=== PATIENT | male | born 1985 | race African-American/Black ===

== ENCOUNTER 2017-03-28 01:56 | Inpatient (IN) | payer MEDICAID, OTHER ==
[2017-03-28 02:29] LABS: Glucose,Whole Blood 156 mg/dL (75-99)
--- NOTE | 2017-03-28 06:29 | ED ---
Psych HPI - General Chief Complaint: Psychiatric Symptoms Stated Complaint: suicidal Time Seen by Provider: 03/28/17 03:09 Source: police Mode of arrival: ambulatory - History of Present Illness Initial Comments: This patient is a 31-year-old man who presents to have behavioral health evaluation. He states that he has been under a lot of stress and that he has had thoughts of doing something rash. He is afraid he may end up hurting someone or himself. The patient states that he had traveled here to take a job with a [employer]. He states that after he arrived here conditions were different than what he felt he was promised. Patient states specifically he believes he will was to have a place to stay arranged for him but on arrival here he was reportedly told to sleep in one of the vehicles and he found some acceptable. MD Complaint: other -: hour(s) Associated Psychiatric Symptoms: suicidal ideation, homicidal ideation, racing thoughts History of same: Yes Quality: getting worse Improves With: none Worsens With: none Context: significant life stressor Associated Symptoms: denies other symptoms - Related Data Allergies Allergy/AdvReac Type Severity Reaction Status Date / Time banana Allergy Unknown Verified 03/28/17 02:32 latex Allergy Unknown Verified 03/28/17 02:32 trazodone AdvReac Unknown Verified 03/28/17 02:32 Review of Systems ROS Statement: Those systems with pertinent positive or pertinent negative responses have been documented in the HPI. ROS Other: All systems not noted in ROS Statement are negative. Constitutional: Denies: fever, chills Eyes: Denies: vision change Respiratory: Denies: cough, dyspnea Cardiovascular: Denies: chest pain, palpitations Gastrointestinal: Denies: abdominal pain, vomiting Musculoskeletal: Denies: back pain Skin: Denies: rash Neurological: Denies: headache Psychiatric: Reports: anxiety, homicidal thoughts, suicidal thoughts Past Medical History Past Medical History: Asthma, Diabetes Mellitus Additional Past Medical History / Comment(s): hydrocephalus History of Any Multi-Drug Resistant Organisms: MRSA Date of last positivie culture/infection: 2013 MDRO Source:: right 5th digit Past Surgical History: No Surgical Hx Reported Past Psychological History: Bipolar, PTSD Smoking Status: Never smoker Past Alcohol Use History: None Reported Past Drug Use History: Marijuana General Exam Limitations: no limitations General appearance: alert, in no apparent distress, anxious Head exam: Present: atraumatic, normocephalic Eye exam: Present: normal appearance Respiratory exam: Present: normal lung sounds bilaterally. Absent: respiratory distress, wheezes, rales, rhonchi, stridor Cardiovascular Exam: Present: regular rate, normal rhythm, normal heart sounds. Absent: systolic murmur, diastolic murmur, rubs, gallop GI/Abdominal exam: Present: soft. Absent: distended, tenderness, guarding, rebound, mass Extremities exam: Present: normal inspection, normal capillary refill. Absent: pedal edema, calf tenderness Neurological exam: Present: alert, normal gait Psychiatric exam: Present: anxious, homicidal ideation, suicidal ideation Skin exam: Present: warm, dry, intact, normal color. Absent: rash Course Vital Signs 03/28/17 02:02 Temperature 97.8 F Pulse Rate 65 Respiratory 18 Rate Blood Pressure 108/56 O2 Sat by Pulse 98 Oximetry Medical Decision Making - Lab Data Lab Results 03/28/17 03/28/17 Range/Units 02:25 02:28 POC Glucose (mg/dL) 156 H (75-99) mg/dL POC Glu Refrigeration Supervisor ID Fior Keating Urine Opiates Screen Not Detected (NotDetected) Ur Oxycodone Screen Not Detected (NotDetected) Urine Methadone Screen Not Detected (NotDetected) Ur Propoxyphene Screen Not Detected (NotDetected) Ur Barbiturates Screen Not Detected (NotDetected) U Tricyclic Antidepress Not Detected (NotDetected) Ur Phencyclidine Scrn Not Detected (NotDetected) Ur Amphetamines Screen Not Detected (NotDetected) U Methamphetamines Scrn Not Detected (NotDetected) U Benzodiazepines Scrn Not Detected (NotDetected) Urine Cocaine Screen Not Detected (NotDetected) U Marijuana (THC) Screen Detected H (NotDetected) Disposition Clinical Impression: Mood disorder Disposition: ADMITTED IP TO THIS HOSP Condition: Fair
[2017-03-28] MEDS ORDERED: ACETAMINOPHEN TAB 325 MG TAB PO PRN (06:52)
[2017-03-28] MEDS ORDERED: MAG HYDROX/AL HYDROX/SIMETH 30 ML CUP PO PRN (06:52)
[2017-03-28] MEDS ORDERED: ZIPRASIDONE 20 MG VIAL IM PRN (06:52)
[2017-03-28] MEDS ORDERED: LORazepam 1 MG TAB PO PRN (06:52)
[2017-03-28] MEDS ORDERED: LORazepam 2 MG/ML SYRINGE IM PRN (06:55)
[2017-03-28 07:08] VITALS: TEMP 97.9
[2017-03-28 07:17] LABS: Appearance,Urine Clear (Clear); Bilirubin,Urine Negative (Negative); Glucose,Urine (UA) Negative (Negative); Ketones,Urine Negative (Negative); Leukocyte Esterase,Urine Negative (Negative); Mucus,Urine Moderate /hpf; Nitrite,Urine Negative (Negative); Particle Count 3330; Protein,Urine Trace (Negative); RBC,Urine 63 /hpf (0-5); UA Billing (MACRO vs. MICRO) MICRO; WBC,Urine 3 /hpf (0-5)
[2017-03-28 07:25] VITALS: BP 114/62; PULSE 56; RESP 15; BMI 18.6
[2017-03-28] MEDS: NICOTINE 14MG/24HR PATCH TRANSDERM SCH (10:04)
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
[2017-03-28 11:57] LABS: Basophils % (A) 0 %; Eosinophils # (A) 0.1 k/uL (0-0.7); Eosinophils % (A) 2 %; HCT 38.3 % (39.0-53.0); HDW 2.06; HGB 12.8 gm/dL (13.0-17.5); Luc # (Auto) 0.07; Luc % (Auto) 1; Lymphocytes # (A) 1.1 k/uL (1.0-4.8); Lymphocytes % (A) 23 %; MCH 32.3 pg (25.0-35.0); MCHC 33.3 g/dL (31.0-37.0); Mean Platelet Volume 9.4; Monocytes # (A) 0.2 k/uL (0-1.0); Monocytes % (A) 5 %; Neutrophils # (A) 3.3 k/uL (1.3-7.7); Neutrophils % (A) 69 %; RBC 3.95 m/uL (4.30-5.90); RDW 12.2 % (11.5-15.5); WBC 4.8 k/uL (3.8-10.6); WBC (Perox) 5.11
[2017-03-28 12:11] LABS: ALT 33 U/L (21-72); AST 26 U/L (17-59); Alkaline Phosphatase 70 U/L (38-126); Anion Gap 9 mmol/L; Blood Urea Nitrogen 14 mg/dL (9-20); Calcium 9.4 mg/dL (8.4-10.2); Carbon Dioxide 29 mmol/L (22-30); Chloride 103 mmol/L (98-107); Glucose 100 mg/dL (74-99); Non-African American GFR(MDRD) >60 (>60 ml/min/1.73 sqM); Potassium 4.1 mmol/L (3.5-5.1); Sodium 141 mmol/L (137-145); Total Bilirubin 1.5 mg/dL (0.2-1.3); Total Protein 6.6 g/dL (6.3-8.2)
[2017-03-28] MEDS: INSULIN LISPRO (humaLOG) 300 UNIT/3 ML VIAL SQ SCH ×3 (12:22→20:45)
[2017-03-28 12:27] LABS: Glucose,Whole Blood 105 mg/dL (75-99)
[2017-03-28 12:49] LABS: Hemoglobin A1C 4.8 % (4.2-6.1)
[2017-03-28] MEDS ORDERED: ZIPRASIDONE 20 MG VIAL IM ONE (13:50)
[2017-03-28] MEDS ORDERED: WATER FOR INJECTION, STERILE 10 ML IV ONE (13:50)
[2017-03-28] MEDS ORDERED: OLANZapine ODT 10 MG TAB PO PRN (13:50)
--- NOTE | 2017-03-28 13:53 | P.MDCNMH ---
History of Present Illness H&P Date: 03/28/17 Chief Complaint: Medical management This is a 31-year-old -Fijian male patient and resides out of state. Patient came to the area to work at the [employer]. He has a past medical history of asthma, diabetes mellitus type 1 diagnosed 10 years ago, hydrocephalus, MRSA , bipolar disorder, PTSD, marijuana use. Patient complains of feeling tired and exhausted and that he does not sleep only 2-3 hours at a time. He also falls asleep during the day. He last saw his primary care physician in December and since that time he has lost 30 pounds. He is complaining of neuropathic pain to the extremities. Patient also complains of nausea and vomiting in the morning with decreased appetite. He has not noted any blood in his urine but he does state it cuadra at the end of urination. He denies any sickle cell in his family. He states that he came in because he was suicidal but he did not act on it. He does not have a current psychiatrist or counselor. He is on olanzapine at home but he states he has not taken it for a few days. Patient was brought into [facility] emergency center by police. He stated that he was under a lot of stress and may end up hurting himself or someone else. He apparently traveled here to take a job with the [facility] and conditions were different than what he was promised. Patient was noted to have moderate blood in his urine and hemoglobin of 12.8. Capillary blood glucose running between 105 and 156. Urine drug screen was positive for marijuana and patient was admitted to the mental health unit. Discussed with patient his refusal to take medications that the psychiatrist has recommended. Patient just states that he will not take pills because he has tried a number of different medications for his depression which did not seem to help in the past. Review of Systems All systems: negative Constitutional: Reports anorexia, Reports chronic pain, Reports daytime sleepiness, Reports fatigue, Reports poor appetite, Reports weight loss, Denies chills, Denies fever Eyes: denies blurred vision, denies pain Ears, nose, mouth and throat: Denies headache, Denies sore throat Cardiovascular: Denies chest pain, Denies shortness of breath Respiratory: Denies cough Gastrointestinal: Reports nausea, Reports vomiting, Denies abdominal pain, Denies diarrhea Genitourinary: Reports dysuria Musculoskeletal: Denies myalgias Integumentary: Denies pruritus, Denies rash Neurological: Denies numbness, Denies weakness Psychiatric: Reports anxiety, Reports depression, Reports insomnia Endocrine: Denies fatigue, Denies weight change Past Medical History Past Medical History: Asthma, Diabetes Mellitus Additional Past Medical History / Comment(s): hydrocephalus History of Any Multi-Drug Resistant Organisms: MRSA Date of last positivie culture/infection: 2013 MDRO Source:: right 5th digit Past Surgical History: No Surgical Hx Reported Past Psychological History: Bipolar, PTSD Smoking Status: Never smoker Additional Past Alcohol Use History / Comment(s): The patient is a lifelong nonsmoker. He does state he uses marijuana but no other street drug use. He denies any alcohol use. He normally resides in [place]. Past Drug Use History: Marijuana Additional Drug Use History / Comment(s): UDS + MJ - Past Family History Father Additional Family Medical History / Comment(s): Patient does not know any history on his father. Mother Additional Family Medical History / Comment(s): Mother is alive at age 56 with no major medical problems that he is aware of. Patient has 1 brother and 1 sister and he has no contact with them. He also has 2 children which she does not have contact with. Medications and Allergies Home Medications Medication Instructions Recorded Confirmed Type Insulin Aspart [Novolog] See Protocol SQ ACHS 03/28/17 03/28/17 History Insulin Glargine [Lantus] 7 unit SQ HS 03/28/17 03/28/17 History OLANZapine [ZyPREXA] 5 mg PO DAILY 03/28/17 03/28/17 History Allergies Allergy/AdvReac Type Severity Reaction Status Date / Time banana Allergy Unknown Verified 03/28/17 08:05 latex Allergy Unknown Verified 03/28/17 08:05 trazodone AdvReac Unknown Verified 03/28/17 08:05 Physical Exam Vitals: Vital Signs Temp Pulse Pulse Resp BP BP Pulse Ox 03/28/17 07:17 97.9 F 56 L 15 114/62 100 03/28/17 07:07 97.9 F 87 18 109/56 100 03/28/17 02:02 97.8 F 65 18 108/56 98 Intake and Output 03/27/17 03/28/17 03/28/17 22:59 06:59 14:59 Other: Weight 54.431 kg 50.972 kg Patient Weight 03/29/17 06:59 Weight 50.972 kg Gen: This is a 31-year-old thin -Fijian male. He is cooperative but appears to be somewhat agitated. HEENT: Head is atraumatic, normocephalic. Pupils equal, round. Sclerae is anicteric. NECK: Supple. No JVD. No lymphadenopathy. No thyromegaly. LUNGS: Clear to auscultation. No wheezes or rhonchi. No intercostal retractions. HEART: Regular rate and rhythm. No murmur. ABDOMEN: Soft. Bowel sounds are present. No masses. No tenderness. EXTREMITIES: No pedal edema. No calf tenderness. NEUROLOGICAL: Patient is awake, alert and oriented x3. Cranial nerves 2 through 12 are grossly intact. Cranial Nerve Examination - Cranial Nerves Cranial Nerve II- Optic: Intact Cranial Nerve III- Oculomotor: Intact Cranial Nerve IV- Trochlear: Intact Cranial Nerve V- Trigeminal: Intact Cranial Nerve - Abducens: Intact Cranial Nerve VII- Facial: Intact Cranial Nerve VIII- Auditory: Intact Cranial Nerve IX- Glossopharyngeal: Intact Cranial Nerve X- Vagus: Intact Cranial Nerve XI- Accessory: Intact Cranial Nerve XII- Hypoglossal: Intact Results CBC & Chem 7: 03/28/17 11:05 03/28/17 11:05 Labs: Abnormal Lab Results - Last 24 Hours (Table) 03/28/17 03/28/17 03/28/17 Range/Units 02:25 02:25 02:28 POC Glucose (mg/dL) 156 H (75-99) mg/dL Urine Protein Trace H (Negative) Urine Blood Moderate H (Negative) Urine RBC 63 H (0-5) /hpf Urine Mucus Moderate H (None) /hpf U Marijuana (THC) Screen Detected H (NotDetected) Assessment and Plan Plan: 1. Depression with history of bipolar, PTSD. Patient admitted to the mental health unit. Continue current plan per psychiatrist. 2. Diabetes mellitus type I. Continue patient's current dose of long acting and short acting insulin. 3. Asthma mild intermittent, stable. 4. Marijuana use. Continue as in #1. 5. Microscopic hematuria. Renal ultrasound has been ordered. Impression and plan of care have been directed as dictated by the signing physician. Jannie Whittington nurse practitioner acting as scribe for signing physician.
[2017-03-29 06:40] LABS: Glucose,Whole Blood 91 mg/dL (75-99)
--- NOTE | 2017-03-29 09:13 | US ---
EXAMINATION TYPE: US kidneys/renal and bladder DATE OF EXAM: 03/29/2017 COMPARISON: NONE CLINICAL HISTORY: Microscopic hematuria. Microscopic hematuria EXAM MEASUREMENTS: Right Kidney: 9.2 x 4.8 x 5.5 cm Left Kidney: 9.4 x 5.9 x 4.8 cm Right Kidney: no hydronephrosis or or nephrolithiasis. Left Kidney: 0.7cm echogenic shadowing focus midpole . No hydronephrosis. Bladder: not fully distended Bilateral Jets seen: no bladder limited by incomplete distention. IMPRESSION: 1. Nonobstructing 7 mm left renal calculus. 2. Bladder wall is thickened but is incompletely distended correlate clinically to assess for cystiti s.
[2017-03-29] MEDS: NICOTINE 14MG/24HR PATCH TRANSDERM SCH (09:58)
[2017-03-29] MEDS: INSULIN LISPRO (humaLOG) 300 UNIT/3 ML VIAL SQ SCH (09:59)
--- NOTE | 2017-03-29 11:26 | P.DS ---
Providers Date of admission: 03/28/17 06:43 Expected date of discharge: 03/29/17 Attending physician: Ana Womack MD Consults: 03/28/17 06:52 Consult Physician Routine Consulting Provider: Matthew Sorensen Reason/Comments: For H & P for Medical Follow Up Do you want consulting provider notified?: Yes, Notify in am Primary care physician: Stated None Hospital Course: BRIEF ADMISSION HISTORY: Patient called the police after he was unhappy with his working conditions at the [employer]. The police offered to take him to a long term at he refused demanding to be taken here no petition was written. Patient told [facility] that he wasn't going to any long term and that if we did not admit him he would slit his jugular vein. HOSPITAL COURSE: Patient admitted to [facility] after voicing suicide ideation with a plan. He he was noted to be on the phone yelling at people, including what sounded like SS regarding his check, he was irritable but staying to himself. When interviewed he was loud but it was discovered that he is hard of hearing so his voice although seemed as if he was shouting was in part due to this. However he would increase his volume when he was upset with staff or with someone else. He had an interaction with another patient when that patient asked him to be able to use the phone, Vikas felt that he had been disrespected because of his race. It took a number of the staff to calm him down, no meds were used. Soon after patient demanded to be released saying that he asked his sister for some money and she refused so he wanted just to leave. It was felt that because we did not know him we had to observe him at least for 24 hours. He became angry and refusing to sign AMA as he had requested and just said that he would stay in his bed sleep not he does not bother anyone. Again no medications were used. Early this morning he approached and wanted to be discharged we talked about what he was going to do he said that he had gotten a hold of his mother. Stated he was not going to go to any long term. During the evaluation his suicide attempts were evaluated and all of them appear to be "instrumental" meaning that he made attempts in front of people and would be rescued or taken to an emergency room. 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 But the scar is not in an area that would cause . Patient display of behavior was one of trauma, and hysterics, he had no ability to look at his participation or behavior, no insight. However he did state that his behavior cause many relationships to end. Patient refused medication while he was here although he continued to take his insulin. There was a renal ultrasound that initially thought he needed to have follow-up later in the day the radiologist called us and said that that was incorrect she did not need to be followed up prior to that update the patient told us that he didn't care if he was not going to follow up he was going to be leaving town. Patient was not suicidal. He denied that he ever told the emergency room staff that he would cut himself, stating that he told them as he told me that he had cut his jugular in a suicide attempt in the past. Patient alert and oriented 3 intense eye contact, fair groomed in street clothing.. Speech increased volume, normal rate and production. Coherent, logical circumstantial thought process. No LINDA, no FOI. No TB/TW/TI Denied auditory and visual hallucinations. Denied paranoid ideation, delusions or IOR. Memory poor Cognition average Mood irritable/angry, affect constricted, congruent with mood. Denies suicidal ideation, denies he ever claimed to be suicidal, denies he stated he had a plan to cut self, denies homicidal ideation but states he liked to hurt the people of the company that brought him here to work [employer] none; Judgment impaired IMPRESSIONS: 31-year-old male with unreliable history presents with long history of histrionic, dramatic behavior, hx criminal behavior, and self injurious behavior. He may have limited intelligence, but is adept at receiving services when needed, including calling police to rescue him after he has taken an undisclosed amount and unknown pill. There is no evidence he has ever taken any of the psychitric medications or followed up on outpatient appointments. He refused all medication except his insulin. He is not psychotic. He is irritable but able to control his behavior although he is verbally loud and inflamatory using foul language. He uses cannabis whenever he can. I no longer see him as having low IQ. Patient signed AMA, there is no evidence to keep patient against his will, no immediate DTS/DTO, no psychosis. No michelle/hypomania Personality Disorder, unspecified, traits of Antisocial PD, Histrionic and Borderline Self injurious behavior by history Cannabis use disorder, severe Antisocial personality disorder versus adult antisocial behavior PLAN: Discharge Gave information on shelters he refused. Pertinent Studies: Renal US intially suggested cystitis but later radiololgist reported no active disease(patient refused follow up treatment when it was thought he had active disease) Procedures: none Plan - Discharge Summary New Discharge Prescriptions: Continue Insulin Aspart [NovoLOG] See Protocol SQ ACHS Insulin Glargine [Lantus] 7 unit SQ HS Discontinued OLANZapine [ZyPREXA] 5 mg PO DAILY Discharge Medication List Insulin Aspart [NovoLOG] See Protocol SQ ACHS 03/28/17 [History] Insulin Glargine [Lantus] 7 unit SQ HS 03/28/17 [History] Follow up Appointment(s)/Referral(s): None,Stated [Primary Care Provider] - 1-2 days Patient Instructions/Handouts: Mood Disorders (DC), Cannabis Abuse (DC) Activity/Diet/Wound Care/Special Instructions: Pt. is recommended to call and make an appointment for follow-up with Urologist/ Dr. Sean Jay in [place] at phone #[phone] r/t Kidney Stones and the need for a Cystoscopy (pt. had an abnormal US of Kidneys/renal and bladder on at [facility]). Remove all weapons and firearms from the home; No street drugs or alcohol; Consistent Carbohydrate Diet; Activity as tolerated; Follow-up with PCP in 1-2 days; Keep all scheduled follow-up appointments; Any problems call your PCP or the Crisis Line at or [phone] in case of emergency.
== END 2017-03-29 12:54 | disposition home or self-care (01) | DRG 883 ==
LOC: EC 01:56 → 3MHU 06:43
PROVIDERS: ADMIT Psychiatry & Neurology Addiction Medicine; ATTEND Psychiatry & Neurology Addiction Medicine
DX: F60.2 Antisocial personality disorder (principal); R45.851 Suicidal ideations; R45.850 Homicidal ideations; F31.9 Bipolar disorder, unspecified; E11.9 Type 2 diabetes mellitus without complications; F39 Unspecified mood [affective] disorder; F12.20 Cannabis dependence, uncomplicated; F43.10 Post-traumatic stress disorder, unspecified; H91.90 Unspecified hearing loss, unspecified ear; J45.909 Unspecified asthma, uncomplicated; Z72.811 Adult antisocial behavior
CPT/HCPCS: 36415; 76770; 80053; 80306; 81001; 82075; 83036; 84443; 85025